=== PATIENT | male | born 1965 | race African-American/Black ===

== ENCOUNTER 2018-08-21 12:42 | Inpatient (IN) | payer OTHER, BC ==
[~2018-08-21] VITALS: Ht 175.3 cm; Wt 89.8 kg
--- NOTE | ~2018-08-21 | HC ---
[facility] [place] [address] CONSULTATION Name: CARLOS JOHNSON Room #: 205-P [facility] IN ..#: [id number] Admission: 08/21/18 ������������������ Attend Phys: Vishal Qiu MD Discharge: ������������������ Date of : 67 Report #: [id number] THIS REPORT FOR: //name// CC: KETURAH Qiu Physician staff REASON FOR CONSULTATION: End-stage renal disease patient with hyperkalemia. HISTORY OF PRESENT ILLNESS: The patient is a chronic dialysis patient, followed in our [facility], became suddenly weak at work, which worsened and came to the Emergency Room and was found to have a potassium of 8.4. He was treated acutely and his pulse and weakness improved and he is to be dialyzed acutely in the Emergency Room. PAST MEDICAL HISTORY: Long-standing diabetes mellitus with variable control, diabetic triopathy noted, history of coronary artery disease and previous coronary artery bypass surgery, history of hepatitis B surface antigen positivity, history of prior kidney transplant with kidney transplant failure due to the patient being noncompliant with followup, history of reasonably difficult hypertension as well and previous appendectomy. HOME MEDICATIONS: Include glipizide 5 mg daily, furosemide 80 mg daily, Renvela 3 with meals t.i.d., Sensipar 30 mg daily, Tums 750 mg with meals t.i.d., Lopressor 25 mg daily, amlodipine 10 mg daily, losartan 50 mg daily. SOCIAL HISTORY: No substantial cigarettes or alcohol and he works, I believe, for the [employer]. REVIEW OF SYSTEMS: GENERAL: He has been feeling reasonably well until this episode. EYES: His vision is reasonably good. ENT: Hearing okay, swallows okay. ENDOCRINE: Positive for diabetes. RESPIRATORY: No shortness of breath. CARDIAC: No chest pain or angina. GASTROINTESTINAL: No nausea, vomiting or diarrhea. MUSCULOSKELETAL: No arthralgia or arthritis. NEUROLOGIC: Just the generalized weakness particularly in his legs. PHYSICAL EXAMINATION: VITAL SIGNS: Blood pressure 200/80. SKIN: Unremarkable. SKELETAL: Well developed, well nourished, alert and oriented. HEENT: Extraocular movements are full. Vision intact. No scleral icterus. Mucous membranes moist. NECK: Supple, no JVD. [facility] [address] [address] CONSULTATION Name: CARLOS JOHNSON Room #: 205-P [facility] IN M.R.#: [id number] Admission: 08/21/18 ������������������ Attend Phys: Vishal Qiu MD Discharge: ������������������ Date of : 67 Report #: [id number] CHEST: Clear. HEART: Regular. ABDOMEN: Soft and nontender. EXTREMITIES: Right arm fistula in place. No peripheral edema. Pulses intact. LABORATORY DATA: Shows his sodium 136, potassium 8.4, chloride 96, bicarbonate 24, creatinine 19.9, BUN 93, hemoglobin 13.5. ASSESSMENT AND PLAN: 1. Acute hyperkalemia in a chronic dialysis patient. Today, he was due for dialysis. We will dialyze him acutely in the ER with a 2K bath and ultrafiltration. 2. Diabetes mellitus with triopathy. 3. Failed renal transplant, status post transplant nephrectomy. 4. Hepatitis B surface antigen positivity. 5. Difficult hypertension. ��������������������������������������������� ���������������������������������������� By: ��������������������������������������������� 1728 1208 Rafiq Underwood MD /nt
[~2018-08-21 12:42] MED LIST: ACETAMINOPHEN-1 EAC1 PO; ANTI-DIARRHEA2 MG PO; ASPIRIN EC325 M1; ASPIRIN325 PO; BACTRIM DS TAB1 EACH PO; BYSTOLIC2.5 MG; DIOVAN320 MG PO; DULCOLAX STOOL100 MG; FISHOIL; FLOXIN OTI0.3 %/5 M1 OT; FUROSEMIDE 40 M40 M1 PO; GLIPIZIDE ER5 MG PO; IRON; LASIX 40 MG TAB40 MG PO; LASIX 80 MG TAB80 M1; LISINOPRIL; LISINOPRIL40 MG PO; LOPRESSOR25 PO; MULTI-VITAMIN1 EAC5 PO; NEPHROCAPS SOFT1 CAP PO; NEURONTIN600 MG; NISOLDIPINE20 MG; NITROQUICK0.4 MG PO; NOVOLOG100 UNIT/1; PACERONE100 MG; PERCOCET 10-321 EACH; PROTONIX40 M1 PO; RENVELA800 MG PO; REQUIP 1 MG TABL1 M1; SENSIPAR 30 MG30 M1 PO; SILVADENE20 GM TOP; TESSALON PERLE100 MG PO; TUMS E.S.750 MG PO; VITAMINC500 PO; ZINC CHELATE50 MG PO; ZOFRAN ODT4 MG PO
[2018-08-21 12:43] VITALS: BP 206/85
[2018-08-21 15:03] LABS: ABSOLUTE NEUTROPHILS 2.9 thou/uL (1.4-8.2); BASOPHILS 0.8 % (0.0-2.0); HEMATOCRIT 40.6 % (42.0-52.0); HEMOGLOBIN 13.5 gm/dL (14.0-18.0); LYMPHOCYTES 25.7 % (24.0-44.0); MCH 30.1 pg (26.0-34.0); MCHC 33.2 g/dL (28.0-37.0); MCV 90.8 fL (80.0-100.0); MONOCYTES 11.6 % (1.0-8.0); PLATELET COUNT 214 thou/uL (150-400); POLYS 60.9 % (36.0-66.0); RBC 4.47 mil/uL (4.50-6.00); RDW 19.7 % (10.5-14.5); WBC 4.7 thou/uL (4.0-11.0)
[2018-08-21 15:10] LABS: CALCIUM 8.3 mg/dL (8.5-10.1); CREATININE 19.9 mg/dL (0.7-1.3)
[2018-08-21 15:18] LABS: POTASSIUM 8.4 mmol/L (3.5-5.1)
--- NOTE | 2018-08-21 18:46 | NUR ---
YORDY CALLED R/T PT C/O ITCHING. V/O RECIEVED BENADRYL 25 IV NOW, ONE TIME
[2018-08-22 00:50] VITALS: BP 188/93
[2018-08-22 01:10] LABS: CALCIUM 8.6 mg/dL (8.5-10.1)
[2018-08-22 01:11] LABS: POTASSIUM 4.5 mmol/L (3.5-5.1)
[2018-08-22 02:08] VITALS: BP 179/106
[2018-08-22] MEDS ORDERED: COZAAR 25 MG TA25 M1 PO (03:00)
[2018-08-22] MEDS ORDERED: TYLENOL325 MG PO (03:03)
[2018-08-22] MEDS ORDERED: BARACLUDE0.5 MG PO (03:06)
[2018-08-22] MEDS ORDERED: NEPHROCAPS SOFT1 CAP PO (03:08)
[2018-08-22] MEDS ORDERED: ALLOPURINOL 10100 M1 PO (03:09)
[2018-08-22] MEDS ORDERED: NORVASC10 MG PO (03:12)
[2018-08-22] MEDS ORDERED: COREG25 MG PO (03:14)
[2018-08-22] MEDS ORDERED: GABAPENTIN 100100 MG PO (03:15)
[2018-08-22] MEDS ORDERED: VITAMIN D1000 UNI1 PO (03:17)
[2018-08-22] MEDS ORDERED: CHILDREN'S ASPI81 M1 PO (03:18)
--- NOTE | 2018-08-22 04:11 | NUR ---
PT ADMITED TO UNIT AROUND 0230. VSS. ASSESSMENT CHARTED. PT DENIES ANY PAIN OR WEAKNESS OF NOW. PT WAS UPSET ABOUT NO PRIVACY IN THE ED AND THE LONG WAIT TIME FOR A ROOM. HAD HD IN ED, R UA FISTULA CDI. NORMAL HD M-D-F. ADMISSION AND MED RECONCIL COMPLETED. PT RESTING PEACEFULLY AT THIS TIME WITH NO OTHER CONCERNS BUT TO GO HOME SOON. WILL CONTINUE TO MONITOR AND WITH POC.
[2018-08-22 07:20] VITALS: BP 159/77
--- NOTE | 2018-08-22 07:48 | EKG ---
[place] [address] [address] [place] [address] ELECTROCARDIOGRAM REPORT Name: CARLOS JOHNSON J Room #: 205-P ADM IN M.R.#: [id number] ������������������ Admission: 08/21/18 ������������������ Attend Phys: Vishal Qiu MD Discharge: ������������������ Date of : 67 Report #: [id number] ����������������������������������������������������������������� [id number] THIS REPORT FOR: //name// [facility] ED Test Date: 2018-08-21 Test Time: 15:44:06 Pat Name: CARLOS JOHNSON Department: Room: 205 Gender: M Title 1 Tutor: PURVI : 1965 Requested By: Audra Ji Order Number: [id number] MD: Brijesh Guadarrama Measurements Intervals [place] Rate: 91 P: 35 [place]: 208 QRS: -34 QRSD: 120 T: 56 QT: 390 QTc: 480 Interpretive Statements Sinus rhythm leftward axis Nonspecific intraventricular conduction delay Poor R wave progression no previous ECGs available for comparison Electronically Signed On 08-22-2018 7:48:40 [employer] by Brijesh Guadarrama [email or web address] ��������������������������������������������� <ELECTRONICALLY SIGNED> ���������������������������������������� By: Brijesh Guadarrama MD, [facility] ��������������������������������������������� 08/22/18 0748 1544 1544 Brijesh Guadarrama MD, FACC /EPI
[2018-08-22 08:39] LABS: HEMATOCRIT 43.7 % (42.0-52.0); HEMOGLOBIN 14.3 gm/dL (14.0-18.0); MCH 29.9 pg (26.0-34.0); MCHC 32.7 g/dL (28.0-37.0); MCV 91.2 fL (80.0-100.0); PLATELET COUNT 199 thou/uL (150-400); RBC 4.79 mil/uL (4.50-6.00); RDW 19.5 % (10.5-14.5); WBC 3.2 thou/uL (4.0-11.0)
[2018-08-22 08:57] LABS: ALBUMIN 3.4 g/dL (3.4-5.0); CALCIUM 8.9 mg/dL (8.5-10.1); MAGNESIUM 2.2 mg/dL (1.8-2.4)
[2018-08-22 09:20] LABS: ABSOLUTE NEUTROPHILS 1.8 thou/uL (1.4-8.2); PLATELET ESTIMATE NORMAL
[2018-08-22 11:01] VITALS: BP 159/77
[2018-08-22 11:20] VITALS: BP 183/80
== END 2018-08-22 17:00 | disposition home or self-care (01) | DRG 682 ==
LOC: ER 12:42 → 2N 16:16 → EROBS 16:16 → 2N 08-22 02:08
PROVIDERS: Emergency Medicine; Nurse Practitioner; Nurse Practitioner Family; ADMIT Hospitalist
PROC: 5A1D70Z Performance of Urinary Filtration, Intermittent, Less than 6 Hours Per Day (ICD-10-PCS; principal; 2018-08-21)
PROC: 5A1D70Z Performance of Urinary Filtration, Intermittent, Less than 6 Hours Per Day (ICD-10-PCS; 2018-08-22)
DX: I12.0 Hypertensive chronic kidney disease with stage 5 chronic kidney disease or end stage renal disease (principal); N18.6 End stage renal disease; B19.10 Unspecified viral hepatitis B without hepatic coma; E87.5 Hyperkalemia; I25.10 Atherosclerotic heart disease of native coronary artery without angina pectoris; I16.0 Hypertensive urgency; E11.22 Type 2 diabetes mellitus with diabetic chronic kidney disease; Z95.1 Presence of aortocoronary bypass graft; Z90.49 Acquired absence of other specified parts of digestive tract; Z99.2 Dependence on renal dialysis; Z79.82 Long term (current) use of aspirin; Z79.899 Other long term (current) drug therapy; Z88.1 Allergy status to other antibiotic agents; Z88.8 Allergy status to other drugs, medicaments and biological substances
CPT/HCPCS: 32100